=== PATIENT | male | born 1975 | race Caucasian/White ===

== ENCOUNTER 2025-01-07 09:24 | Emergency (ER) | payer OTHER ==
[~2025-01-07] VITALS: Ht 177.8 cm; Wt 95.3 kg
[2025-01-07] MEDS ORDERED: ALBU18HF2 INH (10:35)
[2025-01-07 10:45] VITALS: BP 128/85; TEMP 98.1; O2SAT 98
== END 2025-01-07 10:49 | disposition home or self-care (01) ==
LOC: ER 09:28
DX: J06.9 Acute upper respiratory infection, unspecified (principal); B97.89 Other viral agents as the cause of diseases classified elsewhere; I10 Essential (primary) hypertension; E78.5 Hyperlipidemia, unspecified; J18.9 Pneumonia, unspecified organism; Z88.0 Allergy status to penicillin; Z60.2 Problems related to living alone
CPT/HCPCS: 71045-TC